=== PATIENT | female | born 1995 | race Caucasian/White ===

== ENCOUNTER 2017-02-07 12:34 | Emergency (ER) | payer SELFPAY ==
[~2017-02-07] VITALS: Ht 165.1 cm; Wt 66.2 kg
[2017-02-07 12:34] VITALS: BP 114/74
[2017-02-07] MEDS ORDERED: TRAZ-144 PO (12:50)
[2017-02-07] MEDS ORDERED: MOOD STABILIZER (12:50)
--- NOTE | 2017-02-07 13:02 | NUR ---
URINE SAMPLE COLLECTED SENT TO LAB
[2017-02-07 13:11] LABS: APPEARANCE,URINE Cloudy (CLEAR); BILIRUBIN,URINE Negative (NEGATIVE); BLOOD, URINE Moderate Ery/uL (NEGATIVE); COLOR,URINE Yellow (YELLOW); KETONES,URINE Trace (NEGATIVE); LEUKOCYTE ESTERASE ,URINE Negative (NEGATIVE); NITRITE, URINE Negative (NEGATIVE); PROTEIN,URINE 30 mg/dl (NEGATIVE); UGLUCOSE Negative (NEGATIVE); UROBILINOGEN,URINE 0.2 EU/dL (0.2)
[2017-02-07 13:18] LABS: BACTERIA,URINE Few /HPF (None Seen); SQUAMOUS EPITHELIAL CELL,UR Few /HPF (None Seen); URINE AMORPHOUS PHOSPHATES Few /HPF (None Seen); WBC,URINE 0-2 /HPF (0-3)
== END 2017-02-07 14:03 | disposition home or self-care (01) ==
LOC: ER 12:38
DX: N93.9 Abnormal uterine and vaginal bleeding, unspecified (principal)
CPT/HCPCS: 81000-TC; 84703-TC; A4606; Z7610